=== PATIENT | male | born 1995 | race African-American/Black ===

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

== ENCOUNTER 2017-07-29 00:15 | Emergency (ER) | payer MEDICAID | END 2017-07-29 00:55 | disposition home or self-care (01) | LOC: D.ER 00:15 | DX: T62.91XA Toxic effect of unspecified noxious substance eaten as food, accidental (unintentional), initial encounter (principal); Y92.89 Other specified places as the place of occurrence of the external cause ==

== ENCOUNTER 2017-08-20 07:47 | Emergency (ER) | payer MEDICAID | END 2017-08-20 08:36 | disposition home or self-care (01) | LOC: D.ER 07:47 | DX: R11.10 Vomiting, unspecified (principal); F17.200 Nicotine dependence, unspecified, uncomplicated ==